=== PATIENT | male | born 1965 | race American Indian/Alaskan Native ===

== ENCOUNTER 2017-09-14 09:38 | Emergency (ER) | payer OTHER ==
[2017-09-14] MEDS ORDERED: TYLENOL PO ONE (11:40)
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
[2017-09-14 14:25] VITALS: BP 128/80
--- NOTE | 2017-09-15 13:44 | XRay Report ---
THORACIC SPINE RADIOGRAPHS INDICATION: Upper and mid back pain. COMPARISON: None similar at this institution. FINDINGS: AP and lateral thoracic spine radiographs in conjunction with a swimmer's view demonstrate predominantly right sided osteophytes from about T7-T10. Normal vertebral body stature and alignment. No abnormal paraspinal density with clear imaged lungs. Possible osteopenia. Motion artifact limits exam. Few radiopaque dental fillings. CONCLUSION: No acute radiographic abnormality with thoracic spondylosis noted, as described. Thank you for the opportunity to participate in this patient's care.
== END 2017-09-14 14:25 | disposition home or self-care (01) ==
LOC: ED 09:38
DX: S16.1XXA Strain of muscle, fascia and tendon at neck level, initial encounter (principal); S39.012A Strain of muscle, fascia and tendon of lower back, initial encounter; M54.6 Pain in thoracic spine; R51 Headache; I10 Essential (primary) hypertension; E11.9 Type 2 diabetes mellitus without complications; Z90.49 Acquired absence of other specified parts of digestive tract; V43.52XA Car driver injured in collision with other type car in traffic accident, initial encounter; V89.2XXA Person injured in unspecified motor-vehicle accident, traffic, initial encounter; Y93.89 Activity, other specified; Y99.8 Other external cause status; Y92.410 Unspecified street and highway as the place of occurrence of the external cause
CPT/HCPCS: 70450; 72040; 72072; 99284

== ENCOUNTER 2022-01-09 07:19 | Observation (INO) | payer OTHER ==
[2022-01-06 10:31] LABS: Hematocrit 50.9 % (35.5-45.6); Hemoglobin 16.5 gm/dl (11.8-15.2); Mean Corpuscular HGB Conc 32 % (32-34); Mean Corpuscular Volume 84 fl (84-94); Platelet Count 183 K/mm3 (140-440); Red Blood Count 6.08 M/mm3 (3.65-5.03); Red Cell Distribution Width 13.8 % (13.2-15.2)
[2022-01-06 10:48] LABS: Alanine Aminotransferase 21 units/L (7-56); Albumin 3.9 g/dL (3.9-5); BUN/Creatinine Ratio 12; Blood Urea Nitrogen 11 mg/dL (9-20); Calcium 8.9 mg/dL (8.4-10.2); Hemolysis Index 4
--- NOTE | 2022-01-06 11:11 | Anesthesia Consultation ---
Anesthesia Consult and Med Hx Date of service: 01/09/22 - Airway Anesthetic Teeth Evaluation: Good, Crowns, Partials (partials) ROM Head & Neck: Adequate Mental/Hyoid Distance: Adequate Mallampati Class: Class II Intubation Access Assessment: Probably Good - Pre-Operative Health Status ASA Pre-Surgery Classification: ASA2 Proposed Anesthetic Plan: General - Pulmonary Hx Smoking: No Hx Respiratory Symptoms: No - Cardiovascular System Hx Hypertension: Yes Hx Heart Attack/AMI: No Hx Peripheral Vascular Disease: No (hx DVT 2 yrs ago on pradaxa (last dose 12/31/21)) - Central Nervous System CVA: No - Endocrine Hx Renal Disease: No Hx Liver Disease: No Hx Non-Insulin Dependent Diabetes: Yes Hx Thyroid Disease: No - Additional Comments Anesthesia Medical History Comments: No hx anesthetic complications.
[~2022-01-09 07:19] MED LIST: ACETAMINOPHEN 500 MG TAB PO SCH; CELECOXIB 200 MG CAP PO NR; GABAPENTIN 300 MG CAP PO NR; GENTAMICIN/NS 80 MG/100 ML 100 ML IV SCH; LACTATED RINGERS 1,000 ML IV SCH; MIDAZOLAM 2 MG/2 ML INJ IV NR
[2022-01-09] MEDS ORDERED: VANCOMYCIN/NS 1 GM/250 ML 1 GM/250 ML BAG IV NR (08:00)
--- NOTE | 2022-01-09 08:41 | Anesthesia Day of Surgery ---
Anesthesia Day of Surgery - Day of Surgery Patient Examined: Yes Patient H&P Reviewed: Yes Patient is NPO: Yes
[2022-01-09] MEDS ORDERED: HYDROmorphone 0.5 MG/0.5 ML INJ IV PRN ×2 (09:00)
[2022-01-09] MEDS ORDERED: VANCOMYCIN 1,500 MG in SODIUM CHLORIDE 0.9% 500 ML 500 ML IV SCH (09:00)
[2022-01-09] MEDS ORDERED: ONDANSETRON 4 MG/2 ML INJ IV NR (09:00)
[2022-01-09] MEDS ORDERED: INSULIN LISPRO 100 UNIT/ML SUB-Q NR (09:22)
[2022-01-09] MEDS ORDERED: BUPIVACAINE/PF (0.5%) 5 MG/1 ML 30 ML VIAL INFILTRATI ONE ×2 (10:16→11:21)
[2022-01-09] MEDS ORDERED: rifAMPin 600 MG VIAL ONE (10:17)
[2022-01-09] MEDS ORDERED: HYDROmorphone 1 MG/1 ML INJ ONE (10:17)
[2022-01-09] MEDS ORDERED: GENTAMICIN 40 MG/ML VIAL 2 ML ONE (10:17)
[2022-01-09] MEDS ORDERED: NEOMY 40 MG/POLYMYXIN B 200,000 UNITS/ML (GU) AMPULE IR ONE ×2 (10:17→11:22)
[2022-01-09] MEDS ORDERED: SODIUM CHLORIDE 0.9% 500 ML 500 ML ONE (10:17)
[2022-01-09] MEDS ORDERED: LIDOCAINE MPF (2%) 20 MG/1 ML VIAL 5 ML ONE (10:17)
[2022-01-09] MEDS ORDERED: propofoL 200 MG/20 ML VIAL IV ONE (10:17)
[2022-01-09] MEDS ORDERED: SODIUM CHLORIDE 0.9% IRR 1,500 ML BOTTLE IR ONE (11:21)
[2022-01-09] MEDS ORDERED: SODIUM CHLORIDE 0.9% 500 ML IVPB IRRIGATION ONE (11:22)
[2022-01-09] MEDS ORDERED: rifAMPin 600 MG VIAL IV ONE (11:22)
[2022-01-09] MEDS ORDERED: GENTAMICIN 40 MG/ML VIAL 2 ML IV ONE (11:23)
--- NOTE | 2022-01-09 11:58 | Short Stay Summary ---
Short Stay Documentation Date of service: 01/09/22 - History H&P: obtained from office - Allergies and Medications Current Medications: Allergies No Known Allergies Allergy (Unverified 09/14/17 09:40) Home Medications Medication Instructions Recorded Confirmed Last Taken Type Gabapentin 500 tab PO BID 09/14/17 12/22/21 09/13/17 History amLODIPine [Norvasc] 10 mg PO DAILY 09/14/17 12/22/21 09/13/17 History metFORMIN [Glucophage] 500 mg PO BID 09/14/17 12/22/21 09/13/17 History Dabigatran [Pradaxa] 75 mg PO BID 12/22/21 12/22/21 Unknown History Empagliflozin/Linagliptin 1 each PO DAILY 12/22/21 12/22/21 Unknown History [Glyxambi 25 mg-5 mg Tablet] Active Medications Acetaminophen (Acetaminophen 500 Mg Tab) 1,000 mg PO PREOP PEG Stop: 01/09/22 23:59 Celecoxib (Celecoxib 200 Mg Cap) 200 mg PO PREOP NR Stop: 01/09/22 23:59 Gabapentin (Gabapentin 300 Mg Cap) 300 mg PO PREOP NR Stop: 01/09/22 23:59 Hydromorphone HCl (Hydromorphone 0.5 Mg/0.5 Ml Inj) 0.25 mg IV Q10MIN PRN PRN Reason: Pain, Moderate (4-6) Hydromorphone HCl (Hydromorphone 0.5 Mg/0.5 Ml Inj) 0.5 mg IV Q10MIN PRN PRN Reason: Pain , Severe (7-10) Gentamicin Sulfate/Sodium Chloride (Gentamicin/Ns 80 Mg/100 Ml) 100 mls @ 200 mls/hr IV PREOP PEG Lactated Ringer's (Lactated Ringers) 1,000 mls @ 100 mls/hr IV DIRECT PEG Stop: 01/09/22 23:59 Vancomycin HCl 1,500 mg/ (Sodium Chloride) 530 mls @ 333.333 mls/hr IV PREOP PEG Stop: 01/10/22 08:59 Midazolam HCl (Midazolam 2 Mg/2 Ml Inj) 2 mg IV PREOP NR Stop: 01/09/22 23:59 Ondansetron HCl (Ondansetron 4 Mg/2 Ml Inj) 4 mg IV ONCE NR Stop: 01/09/22 23:59 - Brief post op/procedure progress note Date of procedure: 01/09/22 Pre-op diagnosis: ed Post-op diagnosis: same Procedure: ipp Anesthesia: FAUSTOA Surgeon: GARY GLORIA Estimated blood loss: minimal Pathology: none Specimen disposition: to lab Condition: stable - Hospital course Hospital course: pt has norco & bactrim postop info on chart dc wrap & hardin done - Disposition Condition at discharge: Stable Disposition: 30 STILL A PATIENT Short Stay Discharge Plan Follow up with: ALESSIO MONROY MD [Primary Care Provider] - 7 Days
[2022-01-09] MEDS ORDERED: ACETAMINOPHEN 325 MG TAB PO PRN (13:00)
[2022-01-09] MEDS ORDERED: NALOXONE 0.4 MG/1 ML INJ IV PRN (13:00)
[2022-01-09] MEDS ORDERED: DEXTROSE 50% IN WATER (25GM) 50 ML SYRINGE IV PRN (13:00)
[2022-01-09] MEDS ORDERED: ONDANSETRON 4 MG/2 ML INJ IV PRN (13:00)
[2022-01-09] MEDS ORDERED: MORPHINE 4 MG/1 ML INJ IV PRN (13:00)
--- NOTE | 2022-01-09 13:21 | Operative Report ---
DATE OF SURGERY: 01/09/2022 PREOPERATIVE DIAGNOSIS: Erectile dysfunction. POSTOPERATIVE DIAGNOSIS: Erectile dysfunction. PROCEDURES: Insertion of inflatable penile prosthesis (22 cm Titan Coloplast with 2 cm rear tip extenders), modeling procedure, injection of intracorporal pharmacologic agent. SURGEON: New Rai MD ANESTHESIA: General. ENERGY MANAGEMENT SPECIALIST: Krissy Kent. ESTIMATED BLOOD LOSS: Minimal. FLUIDS: Crystalloid. COMPLICATIONS: No complications. INDICATIONS: This 56-year-old gentleman with history of refractory erectile dysfunction due to diabetes, presents now for surgical intervention. Risks, benefits, and complications were explained. Questions were answered. He agreed to proceed and his agreed to proceed with surgical intervention. DESCRIPTION OF PROCEDURE: The patient was taken to the operative suite, placed in a supine position. After adequate general anesthesia, prepped and draped in a sterile fashion. Zuniga catheter was placed on the operative field. A dorsal block with 10 mL of Marcaine was performed; also intracorporeal injection of 0.25% Marcaine. No curvature or plaque could be appreciated. Transscrotal incision was made with a Bovie. Sharp dissection was taken down to the corporal bodies and 2-0 Vicryl stay sutures were placed bilaterally. Corporotomies were made bilaterally. Total measurement was 24 cm; therefore, a 22 cm Titan device with 2 cm rear tip extenders were prepped. A 125 mL reservoir was prepped and placed in the retropubic space via the right external ring. Device was prepped and placed into the cylinders with aid of a Fidel needle. A 2-0 Vicryl running stitch was used to close the corporotomies. Insufflation of the device revealed an excellent cosmetic return. We could hear some cracking of the corporal bodies, suggesting scar tissue. Stay sutures were placed at the pump level. Modeling procedure was performed without difficulty, I was able to inflate with a few more pumps and was deflated. The pump and reservoir was connected with the quick click connection system. Inflation again revealed an excellent response. Pump was placed in the dependent portion of the scrotum. Pursestring suture using 2-0 Vicryl was used to secure the dependent portion. Dartos layer was closed with 2-0 Vicryl in a running fashion. Skin was closed with 3-0 Vicryl in interrupted fashion. Collodion and Xeroform gauze as well as a mummy wrap was placed. The patient tolerated this procedure well. Krissy Kent was present throughout the procedure to assist at the bedside. TID: [id number] RECEIPT: [id number] UMM/TG/MOON
[2022-01-09] MEDS: SODIUM CHLORIDE 0.45% 1000 ML 1,000 ML IV SCH ×2 (14:37→22:45)
[2022-01-09] MEDS: HYDROcodone/ACETAMINOPHEN 5-325 MG TAB PO PRN ×2 (14:59→23:04)
--- NOTE | 2022-01-09 16:00 | Post Anesthesia Evaluation ---
- Post Anesthesia Evaluation Patient Participated: Yes Airway Patent: Yes Stable Respiratory Function: Yes Nausea/Vomiting: No Temp > 96.8F: Yes Pain Manageable: Yes Adequeate Hydration: Yes Anesthesia Complications: No Block Receding Appropriately: Not Applicable Patient on Ventilator: No
[2022-01-09] MEDS: ceFAZolin/NS 1 GM/50 ML 1 GM/50 ML BAG IV SCH ×2 (18:06→22:41)
[2022-01-09] MEDS: INSULIN REGULAR, HUMAN 100 UNITS/1 ML SUB-Q SCH ×2 (18:26→22:00)
--- NOTE | 2022-01-09 20:49 | Consultation ---
History of Present Illness - Reason for Consult Consult date: 01/09/22 Medical management Requesting physician: GARY RAI - History of Present Illness 56-year-old male with hypertension, diabetes, DVT on therapeutic anticoagulation presents to ED for evaluation. Consult placed by Dr. Rai for medical management. Patient seen and evaluated upon arrival to his room. No reported nursing events. Patient denies pain. Patient resting comfortably. No reported nursing events. Past History Past Medical History: diabetes, DVT, hypertension Past Surgical History: Other (Urologic surgery) Social history: , lives with family. denies: smoking, alcohol abuse, pr escription drug abuse Family history: diabetes, hypertension Medications and Allergies Allergies Allergy/AdvReac Type Severity Reaction Status Date / Time No Known Allergies Allergy Unverified 09/14/17 09:40 Home Medications Medication Instructions Recorded Confirmed Last Taken Type Gabapentin 500 tab PO BID 09/14/17 12/22/21 01/08/22 06:00 History amLODIPine [Norvasc] 10 mg PO DAILY 09/14/17 12/22/21 01/08/22 06:00 History metFORMIN [Glucophage] 500 mg PO BID 09/14/17 12/22/21 09/13/17 History Dabigatran [Pradaxa] 75 mg PO BID 12/22/21 12/22/21 Unknown History Empagliflozin/Linagliptin 1 each PO DAILY 12/22/21 12/22/21 Unknown History [Glyxambi 25 mg-5 mg Tablet] Active Meds: Active Medications Acetaminophen (Acetaminophen 500 Mg Tab) 1,000 mg PO PREOP PEG Stop: 01/09/22 23:59 Last Admin: 01/09/22 09:30 Dose: 1,000 mg Acetaminophen (Acetaminophen 325 Mg Tab) 650 mg PO Q4H PRN PRN Reason: Pain MILD(1-3)/Fever >100.5/ALCARAZ Hydrocodone Bitart/Acetaminophen (Hydrocodone/Acetaminophen 5-325 Mg Tab) 2 each PO Q6H PRN PRN Reason: Pain, Moderate (4-6) Last Admin: 01/09/22 14:59 Dose: 2 each Amlodipine Besylate (Amlodipine 10 Mg Tab) 10 mg PO DAILY PEG Celecoxib (Celecoxib 200 Mg Cap) 200 mg PO PREOP NR Stop: 01/09/22 23:59 Last Admin: 09/19/22 09:30 Dose: 200 mg Dextrose (Dextrose 50% In Water (25gm) 50 Ml Syringe) 50 ml IV Q30MIN PRN; Protocol PRN Reason: Hypoglycemia Gabapentin (Gabapentin 300 Mg Cap) 300 mg PO PREOP NR Stop: 01/09/22 23:59 Gabapentin (Gabapentin 100 Mg Cap) 500 mg PO BID PEG Hydromorphone HCl (Hydromorphone 0.5 Mg/0.5 Ml Inj) 0.25 mg IV Q10MIN PRN PRN Reason: Pain, Moderate (4-6) Hydromorphone HCl (Hydromorphone 0.5 Mg/0.5 Ml Inj) 0.5 mg IV Q10MIN PRN PRN Reason: Pain , Severe (7-10) Gentamicin Sulfate/Sodium Chloride (Gentamicin/Ns 80 Mg/100 Ml) 100 mls @ 200 mls/hr IV PREOP PEG Lactated Ringer's (Lactated Ringers) 1,000 mls @ 100 mls/hr IV DIRECT PEG Stop: 01/09/22 23:59 Last Admin: 01/09/22 09:15 Dose: 100 mls/hr Vancomycin HCl 1,500 mg/ (Sodium Chloride) 530 mls @ 333.333 mls/hr IV PREOP PEG Stop: 01/10/22 08:59 Sodium Chloride (Nacl 0.45% 1000 Ml) 1,000 mls @ 125 mls/hr IV DIRECT PEG Last Admin: 01/09/22 14:37 Dose: 125 mls/hr Cefazolin Sodium (Ancef/Ns 1 Gm/50 Ml) 1 gm in 50 mls @ 100 mls/hr IV Q8H PEG; Protocol Last Admin: 01/09/22 18:06 Dose: Not Given Insulin Human Regular (Insulin Regular, Human 100 Units/1 Ml) 0 units SUB-Q ACHS PEG; Protocol Last Admin: 01/09/22 18:26 Dose: 3 units Metformin HCl (Metformin 500 Mg Tab) 500 mg PO BID PEG Midazolam HCl (Midazolam 2 Mg/2 Ml Inj) 2 mg IV PREOP NR Stop: 01/09/22 23:59 Last Admin: 01/09/22 10:00 Dose: 2 mg Miscellaneous Medication (Empagliflozin/Linagliptin [Glyxambi 25 Mg-5 Mg Tablet]) 1 each PO DAILY PEG Morphine Sulfate (Morphine 4 Mg/1 Ml Inj) 4 mg IV Q4H PRN PRN Reason: Pain , Severe (7-10) Naloxone HCl (Naloxone 0.4 Mg/1 Ml Inj) 0.1 mg IV Q2MIN PRN PRN Reason: Res Rate </= 8 or 02 SAT < 92% Ondansetron HCl (Ondansetron 4 Mg/2 Ml Inj) 4 mg IV ONCE NR Stop: 01/09/22 23:59 Last Admin: 01/09/22 18:30 Dose: 4 mg Ondansetron HCl (Ondansetron 4 Mg/2 Ml Inj) 4 mg IV Q8H PRN PRN Reason: Nausea And Vomiting Sodium Chloride (Sodium Chloride 0.9% 10 Ml Flush Syringe) 10 ml IV BID PEG Sodium Chloride (Sodium Chloride 0.9% 10 Ml Flush Syringe) 10 ml IV PRN PRN PRN Reason: LINE FLUSH Zolpidem Tartrate (Zolpidem 5 Mg Tab) 5 mg PO QHS PRN PRN Reason: Insomnia Review of Systems Constitutional: no weight loss, no weight gain, no sweats Ears, nose, mouth and throat: no ear pain, no tinnitis, no nose pain, no nasal congestion Cardiovascular: no chest pain, no palpitations, no edema, no lightheadedness Respiratory: no cough, no cough with sputum Gastrointestinal: no abdominal pain, no vomiting, no diarrhea, no change in bowel habits Genitourinary Male: no hematuria, no flank pain, no discharge, no urinary frequency, no nocturia, no erectile dysfunction Rectal: no pain, no incontinence Musculoskeletal: no shooting arm pain, no arm numbness/tingling, no leg numbness/tingling Integumentary: no pruritis, no sores Neurological: no head injury, no transient paralysis, no paralysis, no weakness, no tingling, no tremors Psychiatric: no anxiety, no memory loss, no sleep disturbances, no hypersomnia, no change in appetite Endocrine: no cold intolerance, no polyphagia, no polyuria, no flushing, no weight change Hematologic/Lymphatic: no easy bruising, no easy bleeding Allergic/Immunologic: no allergic rhinitis Exam - Constitutional Vitals: Temp Pulse Resp BP Pulse Ox 97.3 F L 71 16 152/79 97 01/09/22 14:15 01/09/22 14:15 01/09/22 14:15 01/09/22 14:15 01/09/22 14:15 General appearance: Present: obese - EENT Eyes: Present: PERRL ENT: hearing intact, clear oral mucosa - Neck Neck: Present: supple, normal ROM - Respiratory Respiratory effort: normal Respiratory: bilateral: CTA - Cardiovascular Heart Sounds: Present: S1 & S2. Absent: rub, click - Extremities Extremities: pulses symmetrical, No edema Peripheral Pulses: within normal limits - Abdominal General gastrointestinal: Present: soft, non-tender, non-distended, normal bowel sounds Male genitourinary: Present: normal - Integumentary Integumentary: Present: clear, warm, dry - Musculoskeletal Musculoskeletal: gait normal, strength equal bilaterally - Psychiatric Psychiatric: appropriate mood/affect, intact judgment & insight - Neurologic Neurologic: CNII-XII intact, moves all extremities Results - Labs CBC & Chem 7: 01/06/22 09:45 01/06/22 09:45 Labs: Abnormal lab results 01/09/22 01/09/22 01/09/22 Range/Units 09:18 09:50 12:30 POC Glucose 277 H 290 H 174 H (70-105) mg/dL 01/09/22 Range/Units 16:58 POC Glucose 252 H (70-105) mg/dL Assessment and Plan - Patient Problems (1) Hypertension Current Visit: Yes Status: Acute Qualifiers: Hypertension type: primary hypertension Qualified Code(s): I10 - Essential (primary) hypertension Plan to address problem: Monitor blood pressure every shift, continue medical management. (2) Diabetes Current Visit: Yes Status: Acute Plan to address problem: Consistent carbohydrate diet, Accu-Chek, protocol, hypoglycemia protocol. Res ume home antihyperglycemic medication. (3) History of DVT (deep vein thrombosis) Current Visit: Yes Status: Acute Plan to address problem: Resume therapeutic anticoagulation 24 hours postoperatively. (4) Obesity (BMI 30.0-34.9) Current Visit: Yes Status: Acute Plan to address problem: Balanced diet, increase physical activity at discharge, weight reduction, supportive care. (5) Advance care planning Current Visit: Yes Status: Acute Plan to address problem: Disease education done, care plan discussed, diagnosis discussed, +30 minutes. Patient acknowledges understanding agree with care plan. +30 minutes. (6) Preventative health care Current Visit: Yes Status: Acute Plan to address problem: Patient counseled regarding balanced diet, ex physical activity discharge, weight reduction, outpatient follow-up with pulmonary for sleep study.
[2022-01-09] MEDS ORDERED: ZOLPIDEM 5 MG TAB PO PRN (22:00)
[2022-01-09] MEDS ORDERED: GABAPENTIN 300 MG CAP PO SCH (22:00)
[2022-01-09] MEDS: GABAPENTIN 100 MG CAP PO SCH (22:41)
[2022-01-09] MEDS: metFORMIN 500 MG TAB PO SCH (23:29)
[2022-01-10] MEDS: HYDROcodone/ACETAMINOPHEN 5-325 MG TAB PO PRN (05:23)
[2022-01-10] MEDS: ceFAZolin/NS 1 GM/50 ML 1 GM/50 ML BAG IV SCH (05:23)
[2022-01-10 05:24] VITALS: BP 128/77
[2022-01-10] MEDS: GABAPENTIN 100 MG CAP PO SCH (09:06)
[2022-01-10] MEDS: metFORMIN 500 MG TAB PO SCH (09:06)
[2022-01-10] MEDS: INSULIN REGULAR, HUMAN 100 UNITS/1 ML SUB-Q SCH (09:07)
[2022-01-10] MEDS ORDERED: amLODIPine 10 MG TAB PO SCH (10:00)
[2022-01-10] MEDS ORDERED: LINAGLIPTIN PO SCH (10:00)
[2022-01-10] MEDS ORDERED: [UNRECOGNIZED DRUG - OTHER] PO SCH (10:00)
[2022-01-10] MEDS ORDERED: EMPAGLIFLOZIN PO SCH (10:00)
== END 2022-01-10 13:00 | disposition home or self-care (01) ==
LOC: OR 07:19 → 3A 12:00
PROVIDERS: ADMIT Urology; ATTEND Urology
DX: N52.01 Erectile dysfunction due to arterial insufficiency (principal); Z20.822 Contact with and (suspected) exposure to COVID-19; N52.9 Male erectile dysfunction, unspecified; I10 Essential (primary) hypertension; E11.9 Type 2 diabetes mellitus without complications; E66.9 Obesity, unspecified; Z79.4 Long term (current) use of insulin; Z79.84 Long term (current) use of oral hypoglycemic drugs; Z79.899 Other long term (current) drug therapy; Z98.890 Other specified postprocedural states; Z86.718 Personal history of other venous thrombosis and embolism; Z68.33 Body mass index [BMI] 33.0-33.9, adult
CPT/HCPCS: 36415; 54405; 80053; 82962; 85027; 96365; 96366; 96375; C1813; G0378; G0379; J0690; J1170; J1580; J2250; J2270; J2405; J2704; J3370; J3490; J7030; J7040; J7120; U0003; Q9967; J1815